=== PATIENT | male | born 1970 ===

== ENCOUNTER 2019-06-03 16:00 | Inpatient (IN) | payer BC, OTHER ==
--- NOTE | 2019-06-03 16:10 | ED ---
HPI Chest Pain - HPI Summary HPI Summary: Patient is a 48 y/o M presenting to the ED for a chief complaint of midsternal chest pain for the last few days. Patient is present with his . Patient describes his chest pain as a tightness and pressure sensation. He also notes lightheadedness, most recently on 06/03/19. He suspects that the chest pain could be related to stress or eating, but he reports that chest pain on began before he ate anything. Patient denies shortness of breath, cough, or fever. He denies any aggravating or alleviating factors. He was previously seen at Urgent Care where he had an EKG performed and recommended to go to [facility]. PMHx is significant for HLD, HTN, and DM, but he denies cardiac problems. FMHx is significant for ME in his father and HTN in his mother. Patient had a cardiac stress test 2 years ago, but he is unsure why. 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 Patient states he quit smoking 10 years ago, but admits he still smokes a few cigarettes a year. - History of Current Complaint Time Seen by Provider: 06/03/19 16:07 Hx Obtained From: Patient Onset/Duration: Started Days Ago, Atraumatic, Still Present Timing: Lasting Days Initial Severity: Moderate Current Severity: Moderate Pain Scale Used: 0-10 Numeric Chest Pain Location: Mid Sternal Chest Pain Radiates: No Character: Pressure/Squeezing, Tightness Aggravating Factor(s): Nothing Alleviating Factor(s): Nothing Associated Signs and Symptoms: Positive: Chest Pain, Lightheadedness. Negative : Shortness of Breath, Fever, Cough - Allergy/Home Medications Allergies/Adverse Reactions: Allergies Allergy/AdvReac Type Severity Reaction Status Date / Time MS Sulfa Antibiotics Allergy Unknown Hives Verified 12/18/13 11:37 [Sulfa Antibiotics] MS Lisinopril [Lisinopril] Allergy See Comment Verified 12/18/13 11:37 PMH/Surg Hx/FS Hx/Imm Hx Previously Healthy: Yes Endocrine/Hematology History: Reports: Hx Diabetes Cardiovascular History: Reports: Hx Hypercholesterolemia, Hx Hypertension Respiratory History: Reports: Hx Sleep Apnea - Potential Sensory History: Denies: Hx Legally Blind, Hx Deafness Opthamlomology History: Denies: Hx Legally Blind EENT History: Denies: Hx Deafness - Surgical History Surgical History: None Surgery Procedure, Year, and Place: None Infectious Disease History: No - Family History Known Family History: Positive: Cardiac Disease - ME, Hypertension - Social History Occupation: Employed Full-time Lives: With Family Alcohol Use: Weekly Hx Substance Use: No Substance Use Type: Reports: None Hx Tobacco Use: Yes Smoking Status (MU): Current Some Day Smoker Type: Cigarettes Amount Used/How Often: A few cigarettes/year Have You Smoked in the Last Year: Yes Review of Systems Negative: Fever Positive: Chest Pain Negative: Shortness Of Breath, Cough Neurological: Other - Positive lightheadedness All Other Systems Reviewed And Are Negative: Yes Physical Exam - Summary Physical Exam Summary: Constitutional: Well-developed, Well-nourished, Alert. (-) Distressed Skin: Warm, Dry HENT: Normocephalic; Atraumatic Eyes: Conjunctiva normal Neck: Musculoskeletal ROM normal neck. (-) JVD, (-) Stridor, (-) Nuchal rigidity Cardio: Rhythm regular, tachycardia, Heart sounds normal; Intact distal pulses; Radial pulses are 2+ and symmetric. (-) Murmur Pulmonary/Chest wall: Effort normal. (-) Respiratory distress, (-) Wheezes, (-) Rales Abd: Soft, (-) tenderness, (-) Distension, (-) Guarding, (-) Rebound Musculoskeletal: (-) Edema Lymph: (-) Cervical adenopathy Neuro: Alert, Oriented x3 Psych: Mood and affect Normal Triage Information Reviewed: Yes Vital Signs Reviewed: Yes Procedures - Sedation Patient Received Moderate/Deep Sedation with Procedure: No Diagnostics - Laboratory Result Diagrams: 06/03/19 16:43 06/03/19 16:43 Lab Statement: Any lab studies that have been ordered have been reviewed, and results considered in the medical decision making process. - Radiology Chest X-ray Radiology Interpretation Completed By: Radiologist Summary of Radiographic Findings: Chest X-ray IMPRESSION: No radiographic evidence of acute cardiopulmonary disease. Reviewed by Dr. Sevilla. - EKG 16:03 Cardiac Rate: Tachycardia - 105 BPM EKG Rhythm: Sinus Tachycardia ST Segment: Normal Ectopy: None EKG Comparison: No Significant Change Summary of EKG Findings: An EKG at 16:03 reveals sinus tachycardia with 105 BPM , T wave inversions in lead III, V1, V2, V3, V4, and aVF, ST depressions in V1, V2, V3, and V4, nml axis, nml intervals. No STEMI. No acute changes. No change from prior EKG. Reviewed and interpreted by Dr. Sevilla. 17:33 Cardiac Rate: Tachycardia - 107 BPM EKG Rhythm: Sinus Tachycardia ST Segment: Normal Ectopy: None Summary of EKG Findings: A posterior EKG at 17:33 reveals sinus tachycardia with 107 BPM, no significant ST elevations in V7-V9, nml axis, nml intervals. No STEMI. No acute changes. Reviewed and interpreted by Dr. Sevilla. 17:45 Cardiac Rate: Tachycardia - 110 BPM EKG Rhythm: Sinus Tachycardia ST Segment: Normal Ectopy: None Summary of EKG Findings: An EKG at 17:45 reveals sinus tachycardia with 110 BPM , improving ST depressions in V1-V3, nml axis, nml intervals. No STEMI. No acute changes. Reviewed and interpreted by Dr. Sevilla. Re-Evaluation - Re-Evaluation First Eval Re-Evaluation Time: 17:20 Change: Improved Comment: At 17:20, patient is feeling better after being given aspirin. Chest Pain Course/Dx - Course Course Of Treatment: 48-year-old male history of diabetes, hyperlipidemia, hypertension presents with epigastric discomfort and chest pain. - Chest Pain DDX: The patient is well appearing, with stable vitals. Given the patient's clinical presentation, highest on differential is ACS - elevated trop, ST dep anterior leads. given aspirin. Posterior EKG obtained without obvious ST elevations. Troponin elevated. Discuss with on-call cardiology recommends beta alla, heparin drip, nitroglycerin glycerin. Although less likely, differential also includes the following: --Pneumothorax: Equal breath sounds, story inconsistent since gradual onset of symptoms. CXR shows no evidence of pneumothorax. Unlikely. --Cardiac tamponade: The history and physical are not concerning for tamponade. No Pulsus Paradoxus, no tachypnea. Unlikely. -- Mediastinitis or esophageal rupture: The history is not consistent, as the patient has had no recent history of significant wretching, instrumentation, or mediastinal surgeries. Unlikely. --Aortic dissection: The patient does not describe the classical tearing chest pain radiating into the back, and the CXR does not show mediastinal widening or other signs of aortic dissection. Unlikely. --PE: Vitals wnl (not hypoxic, tachycardic or tachypneic). Well's low risk, d-dimer less than 200. Patient given a liter of fluids for tachycardia and elevated blood sugar - Diagnoses Provider Diagnoses: Chest pain - Provider Notifications Discussed Care Of Patient With: Kiana Cantrell - At 17:23, Dr. Kiana Cantrell reviewed the patients case and agrees to admit the patient to [facility] with a diagnosis of chest pain. At 17:57, patients case was reviewed by Dr. Trung Tinsley who recommends nitroglycerin, a heparin drip, beta alla, and patient admission to the ICU. Time Discussed With Above Provider: 17:23 Instructed by Provider To: Admit As Inpatient - Critical Care Time Critical Care Time: 30-74 min - Upon my evaluation, this patient had a high probability of imminent or life-threatening deterioration due to acute coronary syndrome which required my direct attention, intervention, and personal management. I have personally provided 35 minutes of critical care time exclusive of time spent on separately billable procedures. Time includes review of laboratory data, radiology results, discussion with consultants, and monitoring for potential decompensation. Interventions were performed as documented above. Discharge ED - Sign-Out/Discharge Documenting (check all that apply): Patient Departure - Admit - Discharge Plan Condition: Stable Disposition: ADMITTED TO [facility] Referrals: Wali Mantilla MD [Primary Care Provider] - - Billing Disposition and Condition Condition: STABLE Disposition: Admitted to [facility] - Attestation Statements Document Initiated by Mendy: Yes Documenting Scribe: Sandra Dias Provider For Whom Mendy is Documenting (Include Credential): Princess Sevilla MD Scribe Attestation: I, Sandra Dias, scribed for Princess Sevilla MD on 06/03/19 at 1816. Scribe Documentation Reviewed: Yes Provider Attestation: The documentation as recorded by the Sandra harris accurately reflects the service I personally performed and the decisions made by me, Princess Sevilla MD Status of Scribe Document: Viewed
[2019-06-03 16:50] LABS: ABS Basophils 0.1 10^3/ul (0-0.2); ABS Eosinophils 0.1 10^3/ul (0-0.6); ABS Lymphocytes 1.2 10^3/ul (1.0-4.8); ABS Neutrophils 8.3 10^3/ul (1.5-7.7); Eosinophil % 0.5 %; Hematocrit 43 % (42-52); Lymphocyte % 11.5 %; Mean Corpuscular HGB Conc 35 g/dL (31-36); Mean Corpuscular Hemoglobin 28 pg (27-31); Mean Corpuscular Volume 81 fL (80-94); Mean Platelet Volume 8.5 fL (7.4-10.4); Platelet Count 254 10^3/uL (150-450); Red Blood Count 5.32 10^6 /uL (4.18-5.48); Red Cell Distribution Width 13 % (10-15); White Blood Count 10.6 10^3/uL (3.5-10.8)
[2019-06-03 17:07] LABS: ALT 23 U/L (7-52); AST 30 U/L (13-39); Albumin 4.1 g/dL (3.2-5.2); Albumin/Globulin Ratio 1.5 (1-3); Alkaline Phosphatase 167 U/L (34-104); Anion Gap 8 mmol/L (2-11); BUN/Creatinine Ratio 19.8 (8-20); Blood Urea Nitrogen 16 mg/dL (6-24); CO2 Carbon Dioxide 28 mmol/L (22-32); Calcium 9.3 mg/dL (8.6-10.3); Chloride 99 mmol/L (101-111); EGFR African American 123.6 (>60); EGFR Non-African American 102.1 (>60); Globulin 2.8 g/dL (2-4); Glucose 410 mg/dL (70-100); Potassium 3.9 mmol/L (3.5-5.0); Sodium 135 mmol/L (135-145); Total Protein 6.9 g/dL (6.4-8.9)
[2019-06-03 17:17] LABS: Troponin I 1.26 ng/mL (<0.03)
[2019-06-03] MEDS ORDERED: Aspirin TAB* 325 MG PO ONE (17:21)
[2019-06-03] MEDS ORDERED: Aspirin 81 mg CHEW TAB* 81 MG TAB.CHEW ONE (17:42)
[2019-06-03] MEDS ORDERED: Aspirin 81 mg CHEW TAB* 81 MG TAB.CHEW PO ONE (17:44)
[2019-06-03] MEDS ORDERED: Insulin REGULAR(*) 1 UNITS UNIT IV PUSH ONE (17:55)
[2019-06-03] MEDS ORDERED: Nitroglycerin TAB 0.4 MG* 0.4 MG TAB SL ONE (17:56)
[2019-06-03] MEDS ORDERED: Acetaminophen TAB* 325 MG PO PRN (17:56)
[2019-06-03] MEDS ORDERED: Potassium Chlor TAB* 20 MEQ TAB.ER PO ONE (17:56)
[2019-06-03] MEDS ORDERED: NS 0.9% 1000 ML** 1,000 ML IV ONE (17:59)
[2019-06-03] MEDS ORDERED: Carvedilol TAB* 3.125 MG PO SCH (18:00)
[2019-06-03] MEDS ORDERED: Heparin DRIP 25,000 UNITS(*) 25,000 UNITS/500 ML BAG IV SCH (18:00)
[2019-06-03] MEDS ORDERED: Clopidogrel TAB* 300 MG PO ONE (18:05)
[2019-06-03] MEDS ORDERED: Dextrose 50% VIAL 50 ml IV PUSH PRN (18:06)
[2019-06-03] MEDS ORDERED: Metoprolol Tartrate IV* 1 MG/ML 5 ML VIAL IV ONE (19:01)
--- NOTE | 2019-06-03 20:58 | HP ---
CC: Dr. Wali Mantilla* HISTORY AND PHYSICAL: DATE OF ADMISSION: 06/03/19 PRIMARY CARE PROVIDER: Dr. Wali Mantilla. CHIEF COMPLAINT: Chest pain. HISTORY OF PRESENT ILLNESS: This is a 48-year-old male with past medical history of hypertension, hyperlipidemia, diabetes, who has not been taking his medications over the past several days, who presents to the emergency room because of chest pain. Chest pain started about 5 days ago, described as intermittent on and off pain, described as pressure-like sensation, it started when he was starting to run around the house cleaning after the [place] dinner. He reports that the pain is worse today, it is more noticeable and lasting longer, 4/10. At this point, currently he is chest pain-free. The pain is not associated with any shortness of breath, no palpitation, no nausea, no vomiting. He decided to come to the emergency room today because the pain is associated with lightheadedness. There is also on and off head and neck pain. In the emergency room, the patient was seen and evaluated, was ordered for aspirin 325 mg, EKG was obtained and labs were obtained, subsequently the hospitalist service was called. PAST MEDICAL HISTORY: 1. Diabetes. 2. Hypertension. PAST SURGICAL HISTORY: None. HOME MEDICATIONS: Of note, the patient has not taken his home medications over the past several days. Includes: 1. Irbesartan 150 mg daily. 2. Hydrochlorothiazide 25 mg daily. 3. Amlodipine 10 mg daily. ALLERGIES: He is allergic to SULFA drugs and LISINOPRIL. FAMILY HISTORY: He reports that there is hypertension and heart disease in his family, particularly his father's side of the family. SOCIAL HISTORY: The patient is . Lives at home. 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 He is a former smoker, with occasional alcohol use. He states that he does not drink all the time, but during social events and holidays, he will drink heavily; however, he cannot quantify that for me. REVIEW OF SYSTEMS: Constitutional: There are no fevers, no chills, no change in his weight or appetite. Cardiovascular: See HPI. Respiratory: He has no cough, no hemoptysis, no shortness of breath. GI: No nausea, no vomiting, no diarrhea. No abdominal pain. : No hematuria, no dysuria. Neurological: No focal weakness or sensory loss. He is having occasional head pain or headache. Eyes: There are no visual complaints, no blurry vision, no diplopia. ENT: There is no dysphagia, no sore throat. Musculoskeletal: He reports no joint pains or muscle aches. Skin: No rashes or lesions. Psychiatric: No psychosis or anxiety. PHYSICAL EXAMINATION GENERAL: This is an obese male, well developed, well nourished, lying in the emergency room, in no acute distress. VITAL SIGNS: His blood pressure is 163/109, heart rate of 102, respiratory rate of 14, O2 sat of 95% on room air, temperature of 98.2 Fahrenheit. HEENT: Pupils are equal, round, and reactive to light. Atraumatic, normocephalic. NECK: Supple with no JVD. There is no thyromegaly. There is no carotid bruit. LUNGS: There is no tachypnea, no use of accessory muscles. Lungs are clear to auscultation without any wheezing, rales, or rhonchi. HEART: There is no chest wall tenderness, regular, tachycardia with no murmurs , rubs, or gallops. ABDOMEN: Normoactive bowel sounds in all 4 quadrants. The abdomen is soft, nontender, nondistended. EXTREMITIES: Lower extremities, dorsalis pedis is 2+ bilaterally with no lower extremity edema. MUSCULOSKELETAL: Full range of motion is noted at the knees and the ankles. SKIN: There are no rashes or lesions. NEUROLOGIC: Tongue is midline. No facial droop. Symmetric smile. Speech is clear and coherent. Motor is 5/5 in all 4 extremities. PSYCHIATRIC: He is awake, alert, and oriented x3. He is cooperative. DIAGNOSTIC STUDIES/LAB DATA: White count of 10.6, hemoglobin of 15, platelets of 254. APTT of 32. D-dimer of less than 200. Sodium 135, potassium 3.9, chloride 99, bicarb 28. BUN 16, creatinine of 0.81. Glucose of 410. Total bilirubin of 1.10, AST of 30, ALT of 23, alkaline phosphatase of 167. Troponin of 1.26. He had a chest x-ray which shows no radiographic evidence of acute cardiopulmonary disease. The patient underwent an EKG which showed sinus tachycardia with minimal ST-depressions noted in V3, V4. IMPRESSION AND PLAN: 1. Non-ST elevation myocardial infarction. The patient is having chest pain and has risk factors which include diabetes, hypertension, hyperlipidemia. At this point, the patient was given aspirin 325 mg in the emergency room. I will give the patient one dose of Plavix 200 mg and then start the patient on aspirin 81 mg daily, Plavix 75 mg daily, start the patient on Lipitor 80 mg daily, carvedilol 3.125 mg b.i.d., give one dose of metoprolol now. We will also risk stratify the patient with check of lipid profile as well as hemoglobin A1c. 2. Type 2 diabetes with hyperglycemia. We will give 8 units of IV regular insulin followed by starting the patient on insulin sliding scale. 3. Essential hypertension with elevated blood pressure. Start carvedilol, give one dose metoprolol. The case was discussed with the training and development officer, Dr. Tinsley. The patient will be admitted to the intensive care unit. We will recycle the patient's troponin second and three, get a repeat EKG tomorrow, follow up Cardiology recommendations. Get an echocardiogram. Heart-healthy diet. [id number]/CPS #: [id number] MTDD
[2019-06-03] MEDS: Insulin LISPRO* 1 UNITS UNIT SUBCUT SCH (20:59)
[2019-06-03] MEDS ORDERED: Atorvastatin* 80 MG TAB PO ONE (21:00)
[2019-06-03 23:10] LABS: Troponin I 2.12 ng/mL (<0.03)
[2019-06-04] MEDS: Heparin VIAL(*) 5000 UNITS/ML VIAL (FIVE THOUSAND) IV PRN ×2 (00:53→06:50)
[2019-06-04 01:25] LABS: Troponin I 2.16 ng/mL (<0.03)
[2019-06-04 04:55] LABS: ABS Lymphocytes 1.3 10^3/ul (1.0-4.8); ABS Monocytes 1.1 10^3/ul (0-0.8); ABS Neutrophils 8.7 10^3/ul (1.5-7.7); ABS Nucleated RBC 0.1 10^3/ul; Eosinophil % 0.4 %; Hematocrit 45 % (42-52); Hemoglobin 15.3 g/dL (14.0-18.0); Lymphocyte % 11.8 %; Mean Corpuscular HGB Conc 34 g/dL (31-36); Mean Corpuscular Hemoglobin 28 pg (27-31); Mean Corpuscular Volume 83 fL (80-94); Mean Platelet Volume 8.4 fL (7.4-10.4); Platelet Count 275 10^3/uL (150-450); Red Blood Count 5.39 10^6 /uL (4.18-5.48); Red Cell Distribution Width 13 % (10-15); White Blood Count 11.3 10^3/uL (3.5-10.8)
[2019-06-04 05:12] LABS: BUN/Creatinine Ratio 16.4 (8-20); Calcium 9.3 mg/dL (8.6-10.3); EGFR African American 139.4 (>60); EGFR Non-African American 115.2 (>60); HDL Cholesterol 42.4 mg/dL; Potassium 3.9 mmol/L (3.5-5.0)
[2019-06-04 06:51] LABS: Troponin I 1.98 ng/mL (<0.03)
--- NOTE | 2019-06-04 07:48 | CONSULT ---
Subjective Date of Service: 06/04/19 Interval History: Admission Date: 06/03/19 Consult date 06/04/[address] Wali Mantilla CC: Chest pain Reason for consult: Type 1 ME/NSTEMI HISTORY OF PRESENT ILLNESS: This is a 48-year-old man with a history as below. He has had 5 days of intermittent chest pressure centrally at first with exertion and later with rest associated with lightheadedness. He ruled in for ACS and was treated for this and is pain free currently. He has had no syncope , palpitations, dyspnea or edema. He denies any hx of PUD, anemia, blood transfusions or kidney issues. His is at bedside. PAST MEDICAL HISTORY: 1. Diabetes. 2. Hypertension. PAST SURGICAL HISTORY: None. HOME MEDICATIONS: Of note, the patient has not taken his home medications over the past several days. Includes: 1. Irbesartan 150 mg daily. 2. Hydrochlorothiazide 25 mg daily. 3. Amlodipine 10 mg daily. ALLERGIES: He is allergic to SULFA drugs and LISINOPRIL. FAMILY HISTORY: He reports that there is hypertension and heart disease in his family, particularly his father's side of the family. SOCIAL HISTORY: The patient is . 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 No drugs. Quit smoking 20+ years ago, no consistent heavy alcohol use. Medications Active Medications: Acetaminophen (Tylenol Tab*) 650 mg PO Q6H PRN PRN Reason: MILD PAIN or TEMP > 100.4 Last Admin: 06/04/19 04:49 Dose: 650 mg Aspirin (Aspirin 81 Mg Chew Tab*) 81 mg PO DAILY [facility] Carvedilol (Coreg Tab*) 3.125 mg PO BID [facility] Last Admin: 06/03/19 19:59 Dose: 3.125 mg Clopidogrel Bisulfate (Plavix Tab*) 75 mg PO DAILY [facility] Dextrose (Dextrose 50% Vial 50 Ml*) 25 ml IV PUSH .FOR FS < 60 - SS PRN PRN Reason: FS < 60 Heparin Sodium (Porcine) (Heparin Vial(*)) 0 units IV .FOR BOLUSES PRN PRN Reason: HEPARIN DRIP BOLUSES Last Admin: 06/04/19 06:50 Dose: 2,000 units Heparin Sodium/Dextrose (Heparin Drip 25,000 Units(*)) 25,000 units in 500 mls @ 0 mls/hr IV PER RATE [facility]; Protocol Last Admin: 06/03/19 19:27 Dose: 20 mls/hr Insulin Human Lispro (Humalog*) 0 units SUBCUT ACHS [facility]; Protocol Last Admin: 06/03/19 20:59 Dose: 6 unit - received 300 mg of po plavix in ER Home Medications: Amlodipine Besylate [Norvasc] 10 mg PO DAILY 12/13/13 [History Confirmed ] Hydrochlorothiazide TAB* [Hydrodiuril TAB*] 25 mg PO DAILY 12/13/13 [History Confirmed 12/18/13] Irbesartan [Avapro] 150 mg PO DAILY 12/13/13 [History Confirmed 12/18/13] Review of Systems - Measurements Intake and Output: Intake and Output Last 24 Hours 06/02/19 06/03/19 06/04/19 06/05/19 06:59 06:59 06:59 06:59 Intake Total 480 Output Total 1200 Balance -720 Weight 305 lb 15.673 oz Intake: Oral 480 Output: Urine 1200 - Review of Systems Constitutional Symptoms: Negative: Weight Gain, Weight Loss, Weakness, Fatigue, Fever Dermatology: Negative: Rash, Skin Lesions HEENT: Negative: Change in Hearing, Vertigo Eyes: Negative: Change in Vision, Double Vision Thyroid: Negative: Cold Intolerance, Weight Loss, Weight Gain Pulmonary: Negative: Cough, Sputum, Hemoptysis, Wheezing, Respiratory Distress, Shortness of Breath, COPD, Asthma Cardiology: Positive: Chest Pain Negative: Shortness of Breath, Palpitations, Swelling of Ankles, Peripheral Vascular Dis, Edema, Syncope, Claudication, Paroxysmal Nocturnal Dyspnea, Orthopnea Gastroenterology: Negative: Blood in Stools, Haematemesis, Melena Genital - Urinary: Negative: Dysuria, Hematuria Musculoskeletal: Negative: Joint Pain, Joint Stiffness Endocrinology: Positive: Obesity, Diabetes, Hyperglycemia Negative: Polydipsia, Polyuria, Pituitary Disease Hematologic/Lymphatic: Negative: Use of Anticoagulant, Use of Antiplatelet Drugs Neurology: Negative: Hx of Stroke\TIA, Hx Seizures Psychiatry: Negative: Unusual Anxiety, Suicidal Ideation Allergic/Immunologic: Negative: Hx HIV, Immunocompromise Review of Systems Statement: All other review of systems negative, unless stated above. Objective Vital Signs: Temp Pulse Resp BP Pulse Ox 97.7 F 91 19 129/88 93 06/04/19 07:19 06/04/19 06:00 06/04/19 06:00 06/04/19 06:00 06/04/19 06:00 Oxygen Devices in Use Now: Nasal Cannula Appearance: nad, pleasant Ears/Nose/Mouth/Throat: Clear Oropharnyx, Mucous Membranes Moist Neck: NL Appearance and Movements; NL JVP, Trachea Midline Respiratory: Symmetrical Chest Expansion and Respiratory Effort, Clear to Auscultation Cardiovascular: NL Sounds; No Murmurs; No JVD, RRR, No Edema Abdominal: - - soft, obese Extremities: No Edema Skin: No Rash or Ulcers Neurological: Alert and Oriented x 3 Laboratory Results: 06/04/19 04:35 06/04/19 04:35 APTT 52.4 seconds (26.0-38.0) H 06/04/19 06:00 Total Bilirubin 1.10 mg/dL (0.2-1.0) H 06/03/19 16:43 AST 30 U/L (13-39) 06/03/19 16:43 ALT 23 U/L (7-52) 06/03/19 16:43 Alkaline Phosphatase 167 U/L (34-104) H 06/03/19 16:43 Total Protein 6.9 g/dL (6.4-8.9) 06/03/19 16:43 Albumin 4.1 g/dL (3.2-5.2) 06/03/19 16:43 Globulin 2.8 g/dL (2-4) 06/03/19 16:43 Albumin/Globulin Ratio 1.5 (1-3) 06/03/19 16:43 Triglycerides 209 mg/dL 06/04/19 04:35 Cholesterol 248 mg/dL 06/04/19 04:35 LDL Cholesterol 164 mg/dL 06/04/19 04:35 HDL Cholesterol 42.4 mg/dL 06/04/19 04:35 06/03/19 06/03/19 06/04/19 16:43 22:40 01:00 Troponin I 1.26 H* 2.12 H* 2.16 H* 06/04/19 06:00 Troponin I 1.98 H* Diagnostic Imaging: cxr Exam Date: 06/03/19 IMPRESSION: No radiographic evidence of acute cardiopulmonary disease. EKG Data: ekg 06/03/2019 NSR 105 bpm, ischemic st depression v2-v3 non-specific inferior t wave changes repeat 1: St depression improved v2-v3 06/04/2019 NSR non-specific inferior st/t changes Assessment/Plan 48 year old man with obesity, DM2, HTN, dyslipidemia, remote tobacco use admitted with a type 1 ME, no stable without recurrent angina, documented arrhythmias or CHF - Cardiac catheterization with intent for revascularization indicated and recommended. Risks, benefits and alternative discussed and patient wishes to proceed. - continue aspirin - on plavix, further anti-platelet per interventionalist - start lipitor 80 mg po daily, ordered - change BB to toprol 25 mg (ordered) - restart home ARB, ordered - hold hctz and CCB for now - Echo pending
[2019-06-04] MEDS ORDERED: Perflutren Lipid Microsphere* 3 ML VIAL ONE (08:23)
[2019-06-04] MEDS ORDERED: Clopidogrel TAB* 75 MG PO SCH (09:00)
[2019-06-04] MEDS ORDERED: Aspirin EC TAB* 81 MG TAB.EC PO SCH (09:00)
[2019-06-04] MEDS: Aspirin 81 mg CHEW TAB* 81 MG TAB.CHEW PO SCH (09:13)
[2019-06-04] MEDS: Metoprolol Succinate XL TAB* 25 MG PO SCH ×3 (09:14→20:18)
[2019-06-04] MEDS: Atorvastatin* 80 MG TAB PO SCH ×2 (09:15→20:47)
[2019-06-04] MEDS: Insulin LISPRO* 1 UNITS UNIT SUBCUT SCH ×4 (09:16→20:47)
--- NOTE | 2019-06-04 09:21 | ECHO ---
*[facility]* [place] [address] Fax #: [phone] Transthoracic Echocardiogram Patient: Balaji Mora : 1970 Study Date: 06/04/2019 Age: 48 Gender: M HR: 83 bpm Height: 74 in /188 cm BSA: 2.6 m^2 Weight: 304.4 lb /138.3 kg BMI: 39.2 kg/m^2 *Referring Physician: * Lizzie Anand *Reading Physician: * Chris Goel MD Indications: Chest Pain, unspecified. History: Risk factors: Hypertension. Diabetes mellitus. Dyslipidemia. Conclusions Summary: - Left ventricle: The cavity size is normal. Wall thickness is mildly increased. Systolic function is normal. The estimated ejection fraction is 55-60%. - Regional wall motion abnormality: Severe hypokinesis of the mid inferolateral and apical lateral myocardium; cannot exclude of the basal inferolateral myocardium. - Right ventricle: The cavity size is normal. Systolic function is normal. - Left atrium: The atrium is normal in size. - Pulmonary arteries: Systolic pressure can not be accurately estimated. - No significant valvular abnormalities noted. Recommendations: None prior for comparison at time of interpretation. Study data: Transthoracic echocardiogram. Procedure: Transthoracic echocardiography was performed. Image quality was suboptimal. Intravenous Definity , 2 mlswas administered. Complete 2D, spectral Doppler, and color flow Doppler. Location: ICU Patient status: Inpatient. Patient room number: 7. Rhythm: Normal sinus rhythm. Findings Left ventricle: The cavity size is normal. Wall thickness is mildly increased. Systolic function is normal. The estimated ejection fraction is 55-60%. Regional wall motion abnormalities: Severe hypokinesis of the mid inferolateral and apical lateral myocardium; cannot exclude of the basal inferolateral myocardium. Left ventricular diastolic function parameters are normal. Right ventricle: The cavity size is normal. Systolic function is normal. Left atrium: The atrium is normal in size. Right atrium: The atrium is normal in size. Mitral valve: Well visualized. The leaflets are normal thickness. There is trace to mild regurgitation. Aortic valve: The valve is structurally normal. The valve is trileaflet. Cusp separation is normal. Transvalvular velocity is within the normal range. There is no evidence of stenosis. There is no significant regurgitation. Tricuspid valve: The valve is structurally normal. There is no evidence of stenosis. There is physiologic regurgitation. Pulmonic valve: The valve is structurally normal. The leaflets are normal thickness. There is no evidence of stenosis. There is no regurgitation. Aorta: The aortic arch appears normal. Pericardium: There is no significant pericardial effusion. Pulmonary arteries: Systolic pressure can not be accurately estimated. Systemic veins: Inferior vena cava: The vessel is normal in size. Pulmonary veins: Not well visualized. Measurements Left ventricle Value Ref Right atrium continued Value Ref ERIN, LAX (L) 3.5 cm 4.2 - ML dim, ES, 3.7 cm 2.6 - 4.4 5.8 A4C ESD, LAX (L) 2.3 cm 2.5 - SI dim, ES, 4.0 cm 3.4 - 5.3 4.0 A4C FS, LAX 35 % 25 - 43 SI dim/bsa, (L) 1.5 cm/m^2 1.8 - 3.0 PW, ED, LAX (H) 1.5 cm 0.6 - ES, A4C 1.0 FS 35 % 25 - 43 Aortic valve Value Ref Mid-wall FS 9 % -------- Peak v, S 1.17 m/sec --------- PW, ED (H) 1.5 cm 0.6 - VTI, S 22.0 cm --------- 1.0 Mean grad, S 4.0 mm Hg --------- PW/ID, ED 0.44 -------- Peak grad, S 5.0 mm Hg --------- E', avg, TDI 6.2 cm/sec -------- NINA, VTI 4.11 cm^2 ---- ----- E/e', avg, TDI 11 <=14 NINA, Vmax 3.03 cm^2 - -------- LVOT Value Ref Mitral valve Value Ref Diam, S 2.00 cm -------- Peak E 0.69 m/sec --------- Area 3.1 cm^2 -------- Peak A 0.84 m/sec --------- Peak kaitlynn, S 1.13 m/sec -------- Decel time 215 ms --------- Peak grad, S 5 mm Hg -------- Peak E/A ratio 0.8 --------- Mean grad, S 3 mm Hg -------- SV 90 ml -------- Pulmonic valve Value Ref Peak v, S 0.83 m/sec --------- Ventricular septum Value Ref Peak grad, S 3.0 mm Hg --------- IVS, ED (H) 1.6 cm 0.6 - 1.0 Aortic root Value Ref Root diam 3.6 cm <4.6 Right ventricle Value Ref ERIN, LAX 3.3 cm -------- Ascending aorta Value Ref ERIN minor ax, A4C 3.2 cm 1.9 - AAo AP diam, S 3.5 cm --------- mid 3.5 Aortic arch Value Ref Left atrium Value Ref Arch diam 3.0 cm --------- ML dim, A4C 3.8 cm -------- SI dim, A4C 6.2 cm -------- Inferior vena cava Value Ref Vol/bsa, ES, 1-p 14 ml/m^2 12 - 37 Diam 2.1 cm --------- A4C Vol/bsa, ES, A/L (L) 15 ml/m^2 16 - 34 Right atrium Value Ref SI dim, ES 4.0 cm 3.4 - 5.3 Legend: (L) and (H) marleny values outside specified reference range. Prepared and electronically signed by Chris Goel MD 06/04/2019 09:21
[2019-06-04] MEDS ORDERED: fentaNYL* 50 MCG/ML 2 ML VIAL (100 MCG VIAL) ONE (10:39)
[2019-06-04] MEDS ORDERED: VERAPAMIL 2.5 MG/ML 2 ML VIAL ** 5 mg/2 ml ONE (10:40)
[2019-06-04] MEDS ORDERED: Heparin(*) 1000 UNIT/ML 10 ML VIAL CATH LAB IV ONE (10:40)
[2019-06-04] MEDS ORDERED: nitroGLYCERIN DRIP* 25,000 MCG/250 ML BTL ONE (10:40)
[2019-06-04] MEDS ORDERED: Heparin 2 UNITS/ML IVPREMIX* 3,000 ML IV ONE (10:40)
[2019-06-04] MEDS ORDERED: Midazolam* 1 MG/ML 5 ML VIAL (5 MG) ONE (10:40)
[2019-06-04] MEDS ORDERED: Lidocaine 1% INJ* 10 MG/ML 30 ML SDV ONE (10:40)
[2019-06-04] MEDS ORDERED: Iohexol 350 (CONTRAST) 200 ML MDV IV ONE ×2 (10:41)
[2019-06-04] MEDS: CMC:Irbesartan (NF) 150 MG TAB PO SCH (10:51)
[2019-06-04] MEDS ORDERED: Bivalirudin(*) 250 MG VIAL ONE (11:49)
[2019-06-04] MEDS ORDERED: Nitroglycerin TAB 0.4 MG* 0.4 MG TAB SL PRN (13:00)
[2019-06-04] MEDS ORDERED: Ticagrelor* 90 MG TAB PO ONE (13:00)
[2019-06-04] MEDS ORDERED: NS 0.9% 1000 ML** 1,000 ML IV SCH (13:00)
--- NOTE | 2019-06-04 21:56 | CATH ---
CC: Dr. Wali Mantilla; Dr. Chris Goel* CARDIAC CATHETERIZATION AND INTERVENTIONAL REPORT: DATE OF PROCEDURE: 06/04/19 INDICATION FOR THE PROCEDURE: Asked by Dr. Chris Goel (primary hospital bank vault custodian) to perform cardiac catheterization in light of the patient's presentation with chest discomfort and a non-ST segment myocardial infarction. PROCEDURES: Coronary arteriography, primary stenting of the distal circumflex with placement of a 3.0 x 16 mm long Synergy drug-eluting stent postdilated to 3.3 to 3.4 mm. CONSENT: The patient was interviewed and examined on the floor of the hospital where the risks and benefits were explained, he understood them and wished to proceed. APPROACH UTILIZED: The right radial artery was assessed by ultrasound prior to the cardiac catheterization and found to be acceptable for an approach and as such, this was the approach utilized. PRECARDIAC CATHETERIZATION LABORATORY RESULTS: Hemoglobin and hematocrit of 15.3 and 45, white blood count 11,300, platelets 275,000. BUN and creatinine of 12 and 0.7. Sodium 134, potassium 3.9, chloride 101, bicarb 23. Troponin 2.16. EQUIPMENT UTILIZED: 1. Right radial artery sheath - a 6-Faroese Glidesheath Slender. 2. Diagnostic coronary catheter was a 5-Faroese TIG4 curved catheter for the left coronary artery and a 5-Faroese FR4 curved diagnostic catheter for the right coronary artery. 3. Diagnostic guidewire was a 260 length Hinojosa curved guidewire. 4. Interventional guide catheter was a DL4 curved 6-Faroese guide catheter. 5. The interventional wire was a 190-cm length BMW guidewire. 6. The stent utilized was a 3.0 x 16 mm long Synergy drug-eluting stent. 5. The postdeployment balloon catheter was a 3.25 x 8 mm long NC Emerge balloon. 6. The closure device utilized as a regular length Vasc Band. MEDICATIONS GIVEN DURING THE PROCEDURE: A radial artery cocktail initially of 300 mcg of nitroglycerin and 3 mg of verapamil were given as the patient was on a heparin drip. Additional heparin bolus was initially administered for a low ACT. On the decision to intervene, Angiomax bolus and an Angiomax drip was utilized. The patient had already received his Plavix dose this morning prior to coming to the medical laboratory assistant. DESCRIPTION OF PROCEDURE: The patient was brought to the cardiovascular laboratory and a formal time-out was performed. The patient was prepped and draped in sterile fashion and under ultrasound guidance, the right radial artery was cannulated and a sheath was placed. Diagnostic coronary arteriography was performed. The decision was then made to intervene into the distal circumflex at the point of critical stenosis. Angiomax was utilized as the anticoagulant agent with subtherapeutic level for intervention on heparin. Guiding views were obtained and the BMW wire was advanced down the circumflex artery followed by primary stenting. Post-stent deployment balloon inflations were made to high pressures utilizing the 3.25 x 8 mm long NC Emerge balloon. Following this, the artery was assessed. Catheter and sheath were then removed and hemostasis was obtained with a Vasc Band. Total contrast - 140 cc omnipaque. Radiation exposure - 11.5 mins of fluoro time, Air Kerma - 2625 mGy, DAP - 30326 mcGy/m2 RESULTS: CORONARY ARTERIOGRAPHY: A. Left coronary artery. 1. Left main - widely patent. 2. Left anterior descending artery. The left anterior descending artery had minimal luminal irregularities noted with no significant stenosis seen throughout the course of it. It extended toward the apical region, but not on to the distal apical wall or inferior wall. It supplied multiple diagonal branches, which had mild luminal irregularities, but no critical stenosis seen. 3. Circumflex artery - a nondominant vessel supplying a somewhat thin first obtuse marginal branch followed by a moderate sized second obtuse marginal branch, which had an eccentric 65% lesion in its proximal portion. Past this point, the distal circumflex was noted to have a 40% narrowing followed by a 95% to 99% stenosis before the low lying bifurcating obtuse marginal branch. B. Right coronary artery: A large dominant vessel supplying the PDA and multiple posterior left ventricular branches. There was no significant stenosis seen throughout the course. Of note, the posterior descending artery was a large vessel extending to the apical region as well as on to the apical region and up to the distal anterior wall somewhat. Intervention into the distal circumflex artery - successful reduction of critical 95% to 99% stenosis with residual stenosis and less than 10%, JOHN-3 flow and no dissection seen. OVERALL ASSESSMENT: Successful intervention into distal circumflex lesion as described above. Of note, borderline significant lesion seen in second obtuse marginal branch off of the circumflex, for which medical management will be pursued. Dual-antiplatelet therapy is recommended ideally for 1 year given the non- ST elevation myocardial infarction presentation. High dose statin therapy in addition to aggressive risk factor management are strongly recommended. [id number]/[facility] #: [id number] MTDGo
[2019-06-04] MEDS: Ticagrelor* 90 MG TAB PO SCH (22:31)
[2019-06-04] MEDS ORDERED: Metoprolol Succinate XL TAB* 25 MG PO ONE (23:45)
[2019-06-05 04:43] LABS: ABS Basophils 0.1 10^3/ul (0-0.2); ABS Eosinophils 0.1 10^3/ul (0-0.6); ABS Lymphocytes 1.7 10^3/ul (1.0-4.8); ABS Monocytes 1.3 10^3/ul (0-0.8); ABS Neutrophils 7.1 10^3/ul (1.5-7.7); Eosinophil % 1.2 %; Hematocrit 46 % (42-52); Hemoglobin 14.8 g/dL (14.0-18.0); Lymphocyte % 16.2 %; Mean Corpuscular HGB Conc 32 g/dL (31-36); Mean Corpuscular Hemoglobin 27 pg (27-31); Mean Corpuscular Volume 84 fL (80-94); Mean Platelet Volume 8.4 fL (7.4-10.4); Platelet Count 245 10^3/uL (150-450); Red Cell Distribution Width 13 % (10-15); White Blood Count 10.3 10^3/uL (3.5-10.8)
[2019-06-05 04:55] LABS: EGFR African American 159.3 (>60); EGFR Non-African American 131.7 (>60); Potassium 3.5 mmol/L (3.5-5.0)
[2019-06-05] MEDS: Ticagrelor* 90 MG TAB PO SCH (08:13)
[2019-06-05] MEDS: Metoprolol Succinate XL TAB* 25 MG PO SCH (08:13)
[2019-06-05] MEDS: Aspirin 81 mg CHEW TAB* 81 MG TAB.CHEW PO SCH (08:13)
[2019-06-05] MEDS: CMC:Irbesartan (NF) 150 MG TAB PO SCH (08:13)
[2019-06-05] MEDS: Insulin LISPRO* 1 UNITS UNIT SUBCUT SCH ×2 (08:13→12:42)
[2019-06-05] MEDS ORDERED: amLODIPine TAB* 5 MG PO ONE (12:15)
[2019-06-05 13:36] VITALS: BP 138/90
--- NOTE | 2019-06-06 01:17 | DS ---
CC: Dr. Wali Mantilla; Doctor at [facility] * DISCHARGE SUMMARY: DATE OF ADMISSION: DATE OF DISCHARGE: DISCHARGE DIAGNOSES: 1. Acute fed-OZ-vnwqnscbq myocardial infarction. 2. Status post drug-eluting stent to the circumflex coronary artery. 3. Hyperlipidemia. 4. Type 2 diabetes mellitus. 5. Hypertension. 6. Morbid obesity. 7. Non-alcoholic fatty liver disease. 8. History of tobacco abuse, resolved. 9. Medical noncompliance. HISTORY OF PRESENT ILLNESS: The patient is a 48-year-old man admitted with chest pain due to [id number] NC. Please see the dictated admission note for details of the present illness, past medical history, family history, social and personal history, review of systems, and physical examination. DIAGNOSTIC STUDIES/LAB DATA: CBC: WBC 10.6, H and H 15/43, MCV 81, PLT 254, 000. Repeat CBC on 06/04/19: WBC 11.3, H and H 15.3/45, MCV 83, PLT 275,000. CBC on 06/05/19: WBC 10.3, H and H 14.8/46, MCV 84, PLT 245,000. PTT 32, D- dimer less than 200. Subsequent PTT 52.4 on 06/04/19 and 32.9 on 06/05/19. Kceuf-jl-voyr activated clotting time was 135 on 06/04/19. Chemistries on 06/03: Sodium 135, potassium 3.9, chloride 99, CO2 of 28, BUN and creatinine 16/ 0.81, glucose 410. Total bilirubin 1.10, alkaline phosphatase 167. Hemoglobin A1c was 13.1%. Troponins were 1.26, 2.12, 2.16, and 1.98. Wqmed-ub-qaqb glucoses ranged from 149 to 297. Lipids; cholesterol 248, LDL 164, HDL 42.4, triglycerides 209. MRSA screen negative. Imaging: Chest x-ray on 06/03/19 was normal. EKGs showed nonspecific ST-T wave changes, flattening in inferior and anterolateral leads. Transthoracic echocardiogram: Normal EF 55% to 60% with hypokinesis of the mid inferolateral and apical lateral myocardium. Cardiac cath showed 65% proximal circumflex lesion, distal circumflex 40%, followed by 95% to 99% before the low lying bifurcating obtuse marginal. It was a successful intervention into the distal circumflex lesion with placement of a 3 x 16 mm Synergy drug-eluting stent. Cardiac consultation, Dr. Goel thought the patient had type 1 NC; recommended cardiac catheterization, aspirin, antiplatelet agent, atorvastatin, beta-alla , restarting home ARB, holding hydrochlorothiazide and CCB for now, diabetes mellitus treatment. HOSPITAL COURSE: The patient was admitted. In the emergency room, he was treated with 325 mg of aspirin, 200 mg of Plavix. He was begun on Lipitor, initially on carvedilol, then switched to metoprolol. Hemoglobin A1c, lipids were checked. The patient admitted that he had been noncompliant with medications recently. He had cardiac cath done on 06/04/19 with stent placed ( see above). The following day, he felt well, anxious to go home. He agreed to being compliant with medications, we discussed cardiac rehab. His blood pressure was running high after the cath with diastolics up into the one teens. Blood pressure diastolic was as high as 116. He was given additional metoprolol on the evening of 06/04/19. His metoprolol dose is being increased. At the time of discharge, medications have been called into [facility] as they were not able to be transmitted electronically. He is discharged home in improved condition. MEDICATIONS AT THE TIME OF DISCHARGE: 1. Brilinta 90 mg twice daily. 2. Nitroglycerin 0.4 mg sublingual every 5 minutes p.r.n. angina with a total of 3. 3. Metoprolol 50 mg daily. 4. Irbesartan 150 mg daily. 5. Toujeo insulin 60 units daily. 6. Atorvastatin 80 mg daily. 7. Aspirin 81 mg daily. 8. Acetaminophen as needed. 9. Hydrochlorothiazide 25 mg daily. 10. Amlodipine 10 mg daily. DIET: To be Mediterranean-type diet. ACTIVITY: As tolerated. He was told not to do any vigorous activity until his appointment with the engineer process at which time cardiac rehab should be discussed. He is following up with nurse practitioner, Cruz Graves at Dr. Mantilla 's office on 06/08/19. He will follow up with Dr. Bardales in 1 week for wound check. He is being discharged home in improved condition. [id number]/[facility] #: [id number] [facility]
--- NOTE | 2019-06-07 21:27 | DS ---
DISCHARGE SUMMARY: ADDENDUM: DATE OF ADMISSION: 06/03/19 DATE OF DISCHARGE: 06/05/19 [id number]/[facility] #: [id number] MTDD
== END 2019-06-05 13:30 | disposition home or self-care (01) | DRG 174 ==
LOC: ED 16:00 → ICU 18:01
PROVIDERS: ADMIT Internal Medicine; ATTEND Internal Medicine Geriatric Medicine
PROC: B2111ZZ Fluoroscopy of Multiple Coronary Arteries using Low Osmolar Contrast (ICD-10-PCS; 2019-06-04)
PROC: 027034Z Dilation of Coronary Artery, One Artery with Drug-eluting Intraluminal Device, Percutaneous Approach (ICD-10-PCS; principal; 2019-06-04 11:00)
DX: I21.4 Non-ST elevation (NSTEMI) myocardial infarction (principal); E66.01 Morbid (severe) obesity due to excess calories; I25.10 Atherosclerotic heart disease of native coronary artery without angina pectoris; E78.5 Hyperlipidemia, unspecified; I10 Essential (primary) hypertension; K76.0 Fatty (change of) liver, not elsewhere classified; E78.00 Pure hypercholesterolemia, unspecified; G47.30 Sleep apnea, unspecified; E11.65 Type 2 diabetes mellitus with hyperglycemia; Z88.8 Allergy status to other drugs, medicaments and biological substances; Z68.39 Body mass index [BMI] 39.0-39.9, adult; Z88.2 Allergy status to sulfonamides; Z87.891 Personal history of nicotine dependence; Z79.02 Long term (current) use of antithrombotics/antiplatelets; Z79.82 Long term (current) use of aspirin; Z79.899 Other long term (current) drug therapy; Z91.14 Patient's other noncompliance with medication regimen
CPT/HCPCS: 36415; 71046; 76937; 80048; 80053; 80061; 83036; 84484; 85025; 85347; 85379; 85730; 87641; 93005; 93306; 93454; 99285; A9270-GY; C1725; C1769; C1876; C1887; C8929; C9600-LC; J0583; J1644; J2250; J3010; J3490